=== PATIENT | male | born 1960 | race Caucasian/White ===

== ENCOUNTER 2018-06-12 14:50 | Emergency (ER) | payer BC ==
[~2018-06-12] VITALS: Ht 172.7 cm; Wt 81.6 kg
[2018-06-12 15:45] LABS: *BILIRUBIN,URIN NEGATIVE (NEGATIVE); *BLOOD, URINE NEGATIVE (NEGATIVE); *CLARITY,URINE CLEAR (CLEAR); *COLOR,URINE YELLOW (YELLOW); *KETONES,URINE NEGATIVE (NEGATIVE); *PROTEIN,URINE 1+ (NEGATIVE); *UROBILINOGEN,URINE 0.2 E.U./dl (NORMAL); LEUKOCYTE ESTERASE ,URINE NEGATIVE (NEGATIVE); NITRITE, URINE NEGATIVE (NEGATIVE); PH,URINE 5.5 (5.0-8.0); UGLUCOSE NEGATIVE (NEGATIVE)
[2018-06-12 15:56] LABS: MUCUS,URINE MANY /LPF (0-FEW); SQUAMOUS EPITHELIAL CELL,UR FEW /HPF (NONE SEEN); WBC,URINE 0-3 /HPF (0-3)
--- NOTE | 2018-06-12 16:00 | NUR ---
DR HDZ MADE PATIENT AWARE OF TEST RESULTS. WILL BE DC HOME.
--- NOTE | 2018-06-12 16:09 | NUR ---
Patient discharged to home in stable conditon. Written and verbal after care instructions given. Patient verbalizes understanding of instructions.
== END 2018-06-12 16:13 | disposition home or self-care (01) ==
LOC: ER 14:50
DX: K52.9 Noninfective gastroenteritis and colitis, unspecified (principal)
CPT/HCPCS: 81001; 99283; A4663

== ENCOUNTER 2018-10-27 01:47 | Emergency (ER) | payer BC ==
[~2018-10-27] VITALS: Ht 172.7 cm; Wt 81.6 kg
[2018-10-27] MEDS ORDERED: ONDANSETRON 4 MG/2 ML VIAL IV ONE (02:00)
[2018-10-27] MEDS ORDERED: IV NORMAL SALINE 1000 ML BAG IV ONE (02:00)
[2018-10-27] MEDS ORDERED: KETOROLAC TROMETHAMINE 15 MG INJ IV ONE (02:00)
[2018-10-27] MEDS ORDERED: HYDROMORPHONE 1 MG/1 ML DISP.SYRIN IV ONE (02:00)
--- NOTE | 2018-10-27 02:00 | NUR ---
Pt comes into ER with the c/o severe left flank pain 2 hours. Pt states that he has a hx of kidney stones, but denies dysuria.
[2018-10-27] MEDS ORDERED: KETOROLAC TROMETHAMINE 30 MG INJ ONE (02:04)
[2018-10-27] MEDS ORDERED: ONDANSETRON 4 MG/2 ML VIAL ONE (02:05)
[2018-10-27] MEDS ORDERED: HYDROMORPHONE 2 MG/1 ML DISP.SYRIN ONE (02:05)
--- NOTE | 2018-10-27 04:00 | NUR ---
Patient discharged to home in stable conditon. Written and verbal after care instructions given. Patient verbalizes understanding of instructions. Patient instructed not to drive. Patient ambulated out of ER with stable gait. All belongings taken.
[2018-10-27 04:09] VITALS: BP 148/89
== END 2018-10-27 04:00 | disposition home or self-care (01) ==
LOC: ER 01:47
DX: N20.0 Calculus of kidney (principal)
CPT/HCPCS: 74176; 96374; 96375; 99284; J1170; J1885; J2405; A4663; J7030

== ENCOUNTER 2019-06-30 04:17 | Emergency (ER) | payer BC ==
[~2019-06-30] VITALS: Ht 172.7 cm; Wt 84.8 kg
--- NOTE | 2019-06-30 04:40 | NUR ---
received pt from home, c/o abdominal pain antalgic gait, able to speak clear complete sentences. last oral intake: sandwich yesterday at 1pm denies fevers/chills/headaches , some nausea, denies emesis, denies dizziness -ppmdhx, denies surgeries to the site nonrigid, +tenderness above umbilicus. pt monitored accordingly MD at bedside for hx and physical
[2019-06-30] MEDS ORDERED: KETOROLAC TROMETHAMINE 15 MG INJ ONE (04:59)
[2019-06-30] MEDS ORDERED: KETOROLAC TROMETHAMINE 15 MG INJ IVP ONE (05:00)
[2019-06-30] MEDS ORDERED: IV NORMAL SALINE 1000 ML BAG IV ONE (05:00)
--- NOTE | 2019-06-30 05:03 | NUR ---
PT ABLE TO TOLERATE IV SITE INSERTION TO LEFT AC/ 1ATTEMPT, 20G/+LAB DRAW DONE BY SHRUTI ROCHA. CONSENT FOR CT OF ABDOMEN W/ CONTRAST DONE. TAKEN BY SHRUTI DOE PT IS COMPLIANT, CALM AND KEPT COMFORTABLE. MONITORED ACCORDINGLY
[2019-06-30 05:06] LABS: BASOPHILS % (AUTO) 0.4 % (0.0-2.0); EOSINOPHILS % (AUTO) 0.4 % (0.0-7.0); HEMATOCRIT 43.7 % (36.7-47.1); HEMOGLOBIN 15.5 g/dL (12.5-16.3); LYMPHOCYTES # (AUTO) 0.8 K/uL (20.0-40.0); LYMPHOCYTES % (AUTO) 7.1 % (20.5-51.5); MEAN CORPUSCULAR HEMOGLOBIN 31.3 uug (23.8-33.4); MEAN CORPUSCULAR HGB CONC 35 g/dL (32.5-36.3); MEAN CORPUSCULAR VOLUME 88.5 fL (73.0-96.2); MONOCYTES # (AUTO) 0.5 K/uL (2.0-10.0); MONOCYTES % (AUTO) 4.2 % (0.0-11.0); NEUTROPHILS # (AUTO) 9.5 K/uL (1.8-8.9); NEUTROPHILS % (AUTO) 87.9 % (38.5-71.5); PLATELET COUNT (AUTO) 200 K/uL (152-348); RED BLOOD CELL COUNT(AUTO) 4.94 MIL/uL (4.06-5.63); WHITE BLOOD COUNT (AUTO) 10.8 K/uL (3.6-10.2)
[2019-06-30 05:07] LABS: *BILIRUBIN,URIN NEGATIVE (NEGATIVE); *BLOOD, URINE NEGATIVE (NEGATIVE); *CLARITY,URINE CLEAR (CLEAR); *COLOR,URINE YELLOW (YELLOW); *KETONES,URINE NEGATIVE (NEGATIVE); *UROBILINOGEN,URINE 0.2 E.U./dl (NORMAL); LEUKOCYTE ESTERASE ,URINE NEGATIVE (NEGATIVE); NITRITE, URINE NEGATIVE (NEGATIVE); UGLUCOSE NEGATIVE (NEGATIVE)
[2019-06-30 05:12] LABS: POTASSIUM 4.2 mmol/L (3.5-5.1)
[2019-06-30 05:18] LABS: BILIRUBIN,DIRECT 0.2 mg/dL (0.0-0.2); TOTAL PROTEIN, SERUM 7.8 g/dL (6.4-8.2)
[2019-06-30] MEDS ORDERED: SWABABLE VALVE TRANSFER SET EA MC ONE (05:25)
[2019-06-30] MEDS ORDERED: IV NORMAL SALINE 250 ML IV ONE (05:25)
[2019-06-30] MEDS ORDERED: IOHEXOL 300MG/ML 100 ML INFUS..BTL ONE (05:25)
--- NOTE | 2019-06-30 05:32 | NUR ---
PT BROUGHT DOWN TO RADIOLOGY FOR CT OF ABDOMEN WITH CONTRAST VIA GURNEY, ACCOMPANIED BY CARPENTRY SPECIALIST. PT NAD. SIDERAILSX2 UP, BED AT LOWEST POSITION.
--- NOTE | 2019-06-30 05:35 | NUR ---
Patient transported to CT in stable condition.
--- NOTE | 2019-06-30 05:50 | NUR ---
Patient back in room from CT
--- NOTE | 2019-06-30 06:57 | NUR ---
IVF DISCONTINUED. Patient discharged to home in stable conditon. Written and verbal after care instructions given. Patient verbalizes understanding of instructions. AMBULATORY WITH STABLE GAIT. ALL BELONGINGS WITH PT
[2019-06-30 06:59] VITALS: BP 116/85
== END 2019-06-30 07:00 | disposition home or self-care (01) ==
LOC: ER 04:21
DX: R10.31 Right lower quadrant pain (principal); R10.32 Left lower quadrant pain
CPT/HCPCS: 36415; 74177; 80048; 80076; 81001; 83690; 84484; 85025; 85730; 96374; 99284; J1885; Q9967; 70030-TC; A4663; J7030; J7050

== ENCOUNTER 2021-09-27 18:24 | Emergency (ER) | payer BC ==
[~2021-09-27] VITALS: Ht 172.7 cm; Wt 79.4 kg
--- NOTE | 2021-09-27 19:05 | NUR ---
Assumed care of patient from day shift SHRUTI Brenner.
--- NOTE | 2021-09-27 19:10 | NUR ---
Dr. Ornelas on bedside for MSE.
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
[2021-09-27] MEDS ORDERED: KETOROLAC TROMETHAMINE 60 MG INJ IM ONE ×2 (19:30→19:36)
[2021-09-27] MEDS ORDERED: IBUP800T54 PO (22:43)
[2021-09-27 22:47] VITALS: BP 145/92
--- NOTE | 2021-09-27 22:47 | NUR ---
Patient discharged to home in stable condition. Written and verbal after care instructions given. Patient verbalizes understanding of instructions. Stressed follow up or return to ER for worsening s/s.
== END 2021-09-27 22:48 | disposition home or self-care (01) ==
LOC: ER 18:26
DX: M79.662 Pain in left lower leg (principal)
CPT/HCPCS: 76881; 93971; 96372; 99284; J1885; A4663